=== PATIENT | male | born 1960 | race Caucasian/White ===

== ENCOUNTER 2017-07-20 17:41 | Inpatient (IN) | payer OTHER, MEDICAID ==
[2017-07-20 17:56] LABS: ADD MAN DIFF? NO
[2017-07-20 18:00] LABS: WHITE BLOOD COUNT 11.6 10^3/ul (4.8-10.8)
[2017-07-20 18:00] LABS: BASOPHILS % 0.3 % (0.0-2.0); EOSINOPHILS # 0.2 10^3/ul (0.0-0.5); EOSINOPHILS % 1.5 % (0.0-7.0); HEMATOCRIT 47.8 % (42.0-52.0); HEMOGLOBIN 16.5 g/dl (14.0-18.0); LYMPHOCYTES # 1.5 10^3/ul (0.8-2.9); LYMPHOCYTES % 12.7 % (15.0-51.0); MEAN CORPUSCULAR HEMOGLOBIN 31.8 pg (29.0-33.0); MEAN CORPUSCULAR HGB CONC 34.5 g/dl (32.0-37.0); MEAN CORPUSCULAR VOLUME 92.1 fl (82.0-101.0); MEAN PLATELET VOLUME 10.1 fl (7.4-10.4); MONOCYTE # 0.6 10^3/ul (0.3-0.9); MONOCYTES % 4.7 % (0.0-11.0); NEUTROPHIL # 9.3 10^3/ul (1.6-7.5); NEUTROPHILS % 80.4 % (39.0-77.0); PLATELET COUNT 219 10^3/UL (140-415); RED BLOOD COUNT 5.19 10^6/ul (4.70-6.10); RED CELL DISTRIBUTION WIDTH 12.5 % (11.5-14.5)
[2017-07-20 18:15] LABS: INR 0.98; PROTIME 13.1 Sec (11.9-14.9)
[2017-07-20 18:22] LABS: ALANINE AMINOTRANSFERASE 41 IU/L (13-69); ALBUMIN 4.6 g/dl (3.3-4.9); ALBUMIN/GLOBULIN RATIO 1.43; ALKALINE PHOSPHATASE 66 IU/L (42-121); ANION GAP 19 (8-16); ASPARTATE AMINO TRANSFERASE 24 IU/L (15-46); BILIRUBIN,INDIRECT 0.6 mg/dl (0-1.1); BILIRUBIN,TOTAL 0.6 mg/dl (0.2-1.3); BLOOD UREA NITROGEN 16 mg/dl (7-20); CALCIUM 9.4 mg/dl (8.4-10.2); CARBON DIOXIDE 26 mmol/L (21-31); CHLORIDE 102 mmol/L (97-110); CREATININE 0.95 mg/dl (0.61-1.24); GLUCOSE 171 mg/dl (70-220); POTASSIUM 4.5 mmol/L (3.5-5.1); SODIUM 142 mmol/L (135-144); TOTAL PROTEIN 7.8 g/dl (6.1-8.1)
[2017-07-20 18:33] LABS: B-TYPE NATRIURETIC PEPTIDE 889 PG/ML (0-125)
[2017-07-20] MEDS: SOD CHLORIDE 0.9% 100 ML (20:35)
[2017-07-20] MEDS: IOHEXOL 100 ML (20:36)
[2017-07-21] MEDS: SOD CHLORIDE 0.9% 1,000 ML IV (00:01)
[2017-07-21] MEDS: VANCOMYCIN 1 GM (PMX) 250 ML IVPB (00:02)
[2017-07-21] MEDS: KETOROLAC 15 MG INJ IV (00:02)
[2017-07-21] MEDS: CEFEPIME 1GM/50 ML (PMX) 50 ML IVPB ×3 (00:02→20:38)
[2017-07-21 00:39] LABS: LACTIC ACID 1.3 mmol/L (0.5-2.0)
[2017-07-21 00:40] LABS: CREATINE KINASE 81 IU/L (23-200)
[2017-07-21 00:52] LABS: CK INDEX 2.4
[2017-07-21 00:54] LABS: CK-MB 1.92 ng/ml (0.0-2.4)
[2017-07-21 01:01] LABS: TROPONIN-I 0.477 ng/ml (0.00-0.12)
[2017-07-21] MEDS ORDERED: BISACODYL 10 MG SUPP PR (01:30)
[2017-07-21] MEDS ORDERED: ONDANSETRON 4 MG INJ IV ×2 (01:30)
[2017-07-21] MEDS ORDERED: LORAZEPAM 0.5 MG TAB PO (01:30)
[2017-07-21] MEDS ORDERED: DOCUSATE SODIUM 100 MG CAP PO (01:30)
[2017-07-21] MEDS ORDERED: NACL 0.9% 3 ML SYG IV (01:30)
[2017-07-21] MEDS ORDERED: ACETAMINOPHEN 325 MG TAB PO (01:30)
[2017-07-21] MEDS ORDERED: MAGNESIUM HYDROXIDE 30ML CUP PO (01:30)
[2017-07-21] MEDS ORDERED: HYDROCODONE/APAP (5/325) TAB PO (01:30)
[2017-07-21] MEDS: ASPIRIN 81 MG TAB PO (01:44)
[2017-07-21] MEDS: NITROGLYCERIN (SL) 0.4 MG TAB SL ×3 (04:36→04:55)
[2017-07-21] MEDS: morphine 2 MG INJ IV (04:41)
[2017-07-21 05:29] LABS: AADO2 Arterial 467.1 mmHg (7.0-24.0); Arterial Base Excess 0.1 mmol/L (-3.0-3); Arterial Blood Gas Oxygen Sat 99.1 mmHG (95.0-98.0); Arterial COHb 0.9 % (0.0-3.0); Arterial Fraction of Oxyhgb 97.8 % (93.0-99.0); Arterial HCO3 26.3 mmol/L (22.0-26.0); Arterial MetHb 0.4 % (0.0-1.5); Arterial Total Hemglobin 17.2 g/dl (12.0-18.0); MODE NON-REBREATHING MASK; Site LB
[2017-07-21] MEDS: ENOXAPARIN 60 MG/0.6 ML SYG SC ×2 (08:02→20:41)
[2017-07-21] MEDS: ASPIRIN (EC) 81 MG TAB PO ×2 (08:33→08:36)
[2017-07-21] MEDS: BENAZEPRIL 40 MG TAB PO (08:33)
[2017-07-21] MEDS: ISOSORBIDE MONONITRATE(SR)60 MG TAB PO (08:33)
[2017-07-21] MEDS: FAMOTIDINE 20 MG TAB PO ×2 (08:33→20:39)
[2017-07-21] MEDS: PRASUGREL HYDROCHLORIDE 10 MG TABLET PO (08:33)
[2017-07-21 08:34] LABS: ADD MAN DIFF? NO
[2017-07-21 08:46] LABS: BASOPHILS % 0.3 % (0.0-2.0); EOSINOPHILS % 0.1 % (0.0-7.0); HEMATOCRIT 45.7 % (42.0-52.0); HEMOGLOBIN 15.7 g/dl (14.0-18.0); LYMPHOCYTES # 0.9 10^3/ul (0.8-2.9); LYMPHOCYTES % 12.2 % (15.0-51.0); MEAN CORPUSCULAR HEMOGLOBIN 31.7 pg (29.0-33.0); MEAN CORPUSCULAR HGB CONC 34.4 g/dl (32.0-37.0); MEAN CORPUSCULAR VOLUME 92.3 fl (82.0-101.0); MONOCYTE # 0.4 10^3/ul (0.3-0.9); MONOCYTES % 5.3 % (0.0-11.0); NEUTROPHIL # 5.9 10^3/ul (1.6-7.5); NEUTROPHILS % 81.3 % (39.0-77.0); PLATELET COUNT 169 10^3/UL (140-415); RED BLOOD COUNT 4.95 10^6/ul (4.70-6.10); RED CELL DISTRIBUTION WIDTH 12.7 % (11.5-14.5)
[2017-07-21 08:46] LABS: WHITE BLOOD COUNT 7.2 10^3/ul (4.8-10.8)
[2017-07-21 08:55] LABS: CREATINE KINASE 79 IU/L (23-200)
[2017-07-21 08:57] LABS: ALANINE AMINOTRANSFERASE 48 IU/L (13-69); ALBUMIN 3.8 g/dl (3.3-4.9); ALBUMIN/GLOBULIN RATIO 1.31; ALKALINE PHOSPHATASE 62 IU/L (42-121); ANION GAP 14 (8-16); ASPARTATE AMINO TRANSFERASE 36 IU/L (15-46); BILIRUBIN,INDIRECT 0.7 mg/dl (0-1.1); BILIRUBIN,TOTAL 0.7 mg/dl (0.2-1.3); BLOOD UREA NITROGEN 14 mg/dl (7-20); CALCIUM 8.6 mg/dl (8.4-10.2); CARBON DIOXIDE 28 mmol/L (21-31); CHLORIDE 102 mmol/L (97-110); CHOL/HDL RATIO 5.1 RATIO; CHOLESTEROL 174 mg/dl (100-200); CREATININE 0.92 mg/dl (0.61-1.24); GLUCOSE 211 mg/dl (70-220); HDL CHOLESTEROL 34 mg/dl (30-78); LDL CHOLESTEROL,CALCULATED 117 mg/dl; MAGNESIUM 1.4 mg/dl (1.7-2.5); SODIUM 140 mmol/L (135-144); TOTAL PROTEIN 6.7 g/dl (6.1-8.1); TRIGLYCERIDES 115 mg/dl (0-149)
[2017-07-21 08:58] LABS: LACTIC ACID 1.2 mmol/L (0.5-2.0)
[2017-07-21 08:59] LABS: PHOSPHORUS 3.7 mg/dl (2.5-4.9)
[2017-07-21] MEDS ORDERED: ENOXAPARIN 40 MG/0.4 ML SYG SC (09:00)
[2017-07-21] MEDS ORDERED: ENOXAPARIN 60 MG/0.6 ML SYG SC (09:00)
[2017-07-21 09:05] LABS: CK INDEX 2.3
[2017-07-21 09:08] LABS: CK-MB 1.82 ng/ml (0.0-2.4); TROPONIN-I 0.568 ng/ml (0.00-0.12)
[2017-07-21 12:58] LABS: TROPONIN-I 0.605 ng/ml (0.00-0.12)
[2017-07-21] MEDS: MAGNESIUM SULFATE 2 GM/50 ML 50 ML IVPB (14:26)
[2017-07-21] MEDS ORDERED: DEXTROSE 50% 50 ML SYRINGE IV ×2 (15:00)
[2017-07-21] MEDS ORDERED: ALBUTEROL/IPRATROPIUM (NEB) 3 ML AMP HHN (15:00)
[2017-07-21] MEDS ORDERED: GLUCOSE GEL 15 GRAM TUBE BUCCAL (15:00)
[2017-07-21] MEDS ORDERED: GLUCOSE GEL 15 GRAM TUBE PO ×2 (15:00)
[2017-07-21] MEDS ORDERED: GLUCAGON 1 MG INJ IM (15:00)
[2017-07-21 15:10] LABS: HEMOGLOBIN A1C 7.9 % (0-5.9)
[2017-07-21] MEDS: ALBUTEROL/IPRATROPIUM (NEB) 3 ML AMP HHN (16:29)
[2017-07-21] MEDS: NICOTINE (21 MG/24 HR) PATCH TRANSDERM (17:19)
[2017-07-21] MEDS: INSULIN ASPART [NOVOLOG] 3 ML PEN SC ×2 (17:21→20:42)
[2017-07-21 18:37] LABS: CREATINE KINASE 89 IU/L (23-200)
[2017-07-21 18:50] LABS: CK INDEX 0.8
[2017-07-21 18:56] LABS: CK-MB 0.67 ng/ml (0.0-2.4); TROPONIN-I 0.514 ng/ml (0.00-0.12)
[2017-07-21] MEDS: ATORVASTATIN 40 MG TAB PO (20:38)
[2017-07-21] MEDS ORDERED: ATORVASTATIN 10 MG TAB PO (21:00)
[2017-07-22] MEDS: ALBUTEROL/IPRATROPIUM (NEB) 3 ML AMP HHN ×3 (01:04→16:50)
[2017-07-22 07:48] LABS: ADD MAN DIFF? NO
[2017-07-22 07:51] LABS: BASOPHILS % 0.3 % (0.0-2.0); EOSINOPHILS # 0.1 10^3/ul (0.0-0.5); EOSINOPHILS % 0.7 % (0.0-7.0); HEMATOCRIT 45.3 % (42.0-52.0); HEMOGLOBIN 15.3 g/dl (14.0-18.0); LYMPHOCYTES # 1.3 10^3/ul (0.8-2.9); MEAN CORPUSCULAR HEMOGLOBIN 31.1 pg (29.0-33.0); MEAN CORPUSCULAR HGB CONC 33.8 g/dl (32.0-37.0); MEAN CORPUSCULAR VOLUME 92.1 fl (82.0-101.0); MEAN PLATELET VOLUME 9.8 fl (7.4-10.4); MONOCYTE # 0.5 10^3/ul (0.3-0.9); MONOCYTES % 7.7 % (0.0-11.0); NEUTROPHIL # 4.9 10^3/ul (1.6-7.5); NEUTROPHILS % 71.9 % (39.0-77.0); PLATELET COUNT 146 10^3/UL (140-415); RED BLOOD COUNT 4.92 10^6/ul (4.70-6.10); RED CELL DISTRIBUTION WIDTH 12.9 % (11.5-14.5)
[2017-07-22 07:51] LABS: WHITE BLOOD COUNT 6.8 10^3/ul (4.8-10.8)
[2017-07-22] MEDS: INSULIN ASPART [NOVOLOG] 3 ML PEN SC ×4 (07:56→21:00)
[2017-07-22] MEDS: ACETAMINOPHEN 325 MG TAB PO ×2 (07:57→21:14)
[2017-07-22 08:14] LABS: PHOSPHORUS 3.2 mg/dl (2.5-4.9)
[2017-07-22 08:14] LABS: MAGNESIUM 1.9 mg/dl (1.7-2.5)
[2017-07-22 08:17] LABS: ANION GAP 16 (8-16); BLOOD UREA NITROGEN 12 mg/dl (7-20); CALCIUM 8.5 mg/dl (8.4-10.2); CARBON DIOXIDE 29 mmol/L (21-31); CHLORIDE 100 mmol/L (97-110); CREATININE 0.98 mg/dl (0.61-1.24); GLUCOSE 177 mg/dl (70-220); SODIUM 141 mmol/L (135-144)
[2017-07-22] MEDS: BENAZEPRIL 40 MG TAB PO (09:00)
[2017-07-22] MEDS: ISOSORBIDE MONONITRATE(SR)60 MG TAB PO (09:00)
[2017-07-22] MEDS: CEFEPIME 1GM/50 ML (PMX) 50 ML IVPB (09:28)
[2017-07-22] MEDS: NICOTINE (21 MG/24 HR) PATCH TRANSDERM (10:09)
[2017-07-22] MEDS: PRASUGREL HYDROCHLORIDE 10 MG TABLET PO (11:04)
[2017-07-22] MEDS: ASPIRIN (EC) 81 MG TAB PO (11:04)
[2017-07-22] MEDS: FAMOTIDINE 20 MG TAB PO ×2 (11:04→21:17)
[2017-07-22] MEDS: ENOXAPARIN 60 MG/0.6 ML SYG SC (11:06)
[2017-07-22 11:22] LABS: CREATINE KINASE 111 IU/L (23-200)
[2017-07-22 11:36] LABS: CK INDEX 0.4; CK-MB 0.41 ng/ml (0.0-2.4); TROPONIN-I 0.225 ng/ml (0.00-0.12)
[2017-07-22] MEDS: REGADENOSON 0.4 MG/5 ML SYG (14:00)
[2017-07-22] MEDS: MAGNESIUM SULFATE 2 GM/50 ML 50 ML IVPB (14:48)
[2017-07-22] MEDS: AMIODARONE 200 MG TAB PO ×2 (15:30→21:15)
[2017-07-22] MEDS: AMOXICILLIN/CLAV 875 MG TAB PO (21:14)
[2017-07-22] MEDS: ATORVASTATIN 40 MG TAB PO (21:15)
[2017-07-22] MEDS: APIXABAN 5 MG TABLET PO (21:16)
[2017-07-23] MEDS: ALBUTEROL/IPRATROPIUM (NEB) 3 ML AMP HHN ×3 (00:33→15:15)
[2017-07-23] MEDS: INSULIN ASPART [NOVOLOG] 3 ML PEN SC ×3 (08:13→17:29)
[2017-07-23] MEDS: AMOXICILLIN/CLAV 875 MG TAB PO (08:42)
[2017-07-23] MEDS: APIXABAN 5 MG TABLET PO (08:43)
[2017-07-23] MEDS: AMIODARONE 200 MG TAB PO ×2 (08:43→13:18)
[2017-07-23] MEDS: BENAZEPRIL 20 MG TAB PO (08:44)
[2017-07-23 08:45] LABS: ADD MAN DIFF? NO
[2017-07-23] MEDS: FAMOTIDINE 20 MG TAB PO (08:45)
[2017-07-23] MEDS: ISOSORBIDE MONONITRATE(SR)60 MG TAB PO (08:45)
[2017-07-23 08:49] LABS: BASOPHILS % 0.3 % (0.0-2.0); EOSINOPHILS # 0.1 10^3/ul (0.0-0.5); EOSINOPHILS % 1.9 % (0.0-7.0); HEMATOCRIT 45.5 % (42.0-52.0); HEMOGLOBIN 15.7 g/dl (14.0-18.0); LYMPHOCYTES # 1.3 10^3/ul (0.8-2.9); MEAN CORPUSCULAR HEMOGLOBIN 31.5 pg (29.0-33.0); MEAN CORPUSCULAR HGB CONC 34.5 g/dl (32.0-37.0); MEAN CORPUSCULAR VOLUME 91.2 fl (82.0-101.0); MEAN PLATELET VOLUME 10.2 fl (7.4-10.4); MONOCYTE # 0.6 10^3/ul (0.3-0.9); MONOCYTES % 8.7 % (0.0-11.0); NEUTROPHIL # 5.1 10^3/ul (1.6-7.5); NEUTROPHILS % 70.7 % (39.0-77.0); PLATELET COUNT 149 10^3/UL (140-415); RED BLOOD COUNT 4.99 10^6/ul (4.70-6.10); RED CELL DISTRIBUTION WIDTH 12.8 % (11.5-14.5)
[2017-07-23 08:49] LABS: WHITE BLOOD COUNT 7.2 10^3/ul (4.8-10.8)
[2017-07-23] MEDS: NICOTINE (21 MG/24 HR) PATCH TRANSDERM (08:49)
[2017-07-23] MEDS: PRASUGREL HYDROCHLORIDE 10 MG TABLET PO (08:56)
[2017-07-23] MEDS ORDERED: BENAZEPRIL 40 MG TAB PO (09:00)
[2017-07-23 09:16] LABS: ANION GAP 15 (8-16); BLOOD UREA NITROGEN 13 mg/dl (7-20); CALCIUM 8.9 mg/dl (8.4-10.2); CARBON DIOXIDE 27 mmol/L (21-31); CHLORIDE 101 mmol/L (97-110); CREATININE 0.88 mg/dl (0.61-1.24); GLUCOSE 177 mg/dl (70-220); SODIUM 139 mmol/L (135-144)
[2017-07-23 09:24] LABS: MAGNESIUM 1.8 mg/dl (1.7-2.5)
[2017-07-23 09:24] LABS: PHOSPHORUS 3.3 mg/dl (2.5-4.9)
[2017-07-23] MEDS: MAGNESIUM SULFATE 2 GM/50 ML 50 ML IVPB (11:07)
== END 2017-07-23 19:58 | disposition home or self-care (01) | DRG 872 ==
LOC: E/R 17:41 → MS4 07-21 01:13
PROC: C22G1ZZ Tomographic (Tomo) Nuclear Medicine Imaging of Myocardium using Technetium 99m (Tc-99m) (ICD-10-PCS; principal; 2017-07-22)
PROC: 4A02XM4 Measurement of Cardiac Total Activity, External Approach (ICD-10-PCS; 2017-07-22)
PROC: 3E033HZ Introduction of Radioactive Substance into Peripheral Vein, Percutaneous Approach (ICD-10-PCS; 2017-07-22)
DX: A41.9 Sepsis, unspecified organism (principal); Z68.41 Body mass index [BMI] 40.0-44.9, adult; E66.9 Obesity, unspecified; E78.5 Hyperlipidemia, unspecified; I25.10 Atherosclerotic heart disease of native coronary artery without angina pectoris; Z95.1 Presence of aortocoronary bypass graft; Z95.810 Presence of automatic (implantable) cardiac defibrillator; I16.0 Hypertensive urgency; F17.200 Nicotine dependence, unspecified, uncomplicated; I25.5 Ischemic cardiomyopathy; I48.0 Paroxysmal atrial fibrillation; J20.9 Acute bronchitis, unspecified; E11.9 Type 2 diabetes mellitus without complications; I11.9 Hypertensive heart disease without heart failure; I25.2 Old myocardial infarction; R79.89 Other specified abnormal findings of blood chemistry
CPT/HCPCS: 36415; 36600; 71045; 71275; 78452; 80048; 80053; 80061; 82550; 82553; 82803; 82962; 83036; 83605; 83735; 83880; 84100; 84484; 85025; 85610; 87040; 87400; 93005; 93017; 93306; 93970; 94640; 94664; 96374; 96375; 99291-25

== ENCOUNTER 2017-12-11 04:04 | Inpatient (IN) | payer OTHER ==
[2017-12-11] MEDS: METHYLPREDNISOLONE 125 MG INJ IV ×3 (04:16→21:22)
[2017-12-11 04:26] LABS: WHITE BLOOD COUNT 16.5 10^3/ul (4.8-10.8)
[2017-12-11 04:26] LABS: ABNORMAL IP MESSAGE 1; HEMOGLOBIN 16.4 g/dl (14.0-18.0); MEAN CORPUSCULAR HEMOGLOBIN 30.5 pg (29.0-33.0); MEAN CORPUSCULAR HGB CONC 30.9 g/dl (32.0-37.0); MEAN CORPUSCULAR VOLUME 98.5 fl (82.0-101.0); MEAN PLATELET VOLUME 10.4 fl (7.4-10.4); PLATELET COUNT 272 10^3/UL (140-415); POSITIVE DIFF @See below; RED BLOOD COUNT 5.38 10^6/ul (4.70-6.10); RED CELL DISTRIBUTION WIDTH 13.4 % (11.5-14.5)
[2017-12-11 04:27] LABS: ADD MAN DIFF? YES
[2017-12-11] MEDS: IPRATROPIUM (NEB) 0.5 MG/2.5 ML AMP INH ×2 (04:37→04:51)
[2017-12-11] MEDS: ALBUTEROL 0.5% (NEB) 2.5 MG/0.5 ML AMP INH (04:40)
[2017-12-11 04:46] LABS: INR 0.99; PROTIME 13.2 Sec (11.9-14.9)
[2017-12-11 04:47] LABS: PARTIAL THROMBOPLASTIN TIME 29.7 Sec (25.0-35.0)
[2017-12-11 05:00] LABS: ALANINE AMINOTRANSFERASE 53 IU/L (13-69); ALBUMIN 4.5 g/dl (3.3-4.9); ALBUMIN/GLOBULIN RATIO 1.45; ALKALINE PHOSPHATASE 70 IU/L (42-121); ANION GAP 19 (8-16); ASPARTATE AMINO TRANSFERASE 52 IU/L (15-46); BILIRUBIN,INDIRECT 0.4 mg/dl (0-1.1); BILIRUBIN,TOTAL 0.4 mg/dl (0.2-1.3); BLOOD UREA NITROGEN 17 mg/dl (7-20); CALCIUM 9.4 mg/dl (8.4-10.2); CARBON DIOXIDE 26 mmol/L (21-31); CHLORIDE 106 mmol/L (97-110); GLUCOSE 259 mg/dl (70-220); POTASSIUM 4.6 mmol/L (3.5-5.1); SODIUM 146 mmol/L (135-144); TOTAL PROTEIN 7.6 g/dl (6.1-8.1)
[2017-12-11 05:03] LABS: LACTIC ACID 6.1 mmol/L (0.5-2.0)
[2017-12-11 05:11] LABS: B-TYPE NATRIURETIC PEPTIDE 924 PG/ML (0-125); TROPONIN-I < 0.012 ng/ml (0.000-0.120)
[2017-12-11 05:26] LABS: ANISOCYTOSIS 1+ (0-0); BAND NEUTROPHILS #M 0.1 10^3/ul (0.0-0.6); BAND NEUTROPHILS % (M) 1 % (0-4); BASOPHIL #M 0.1 10^3/ul (0.0-0.0); BASOPHILS % (M) 1 % (0-2); EOSINOPHILS % (M) 3 % (0-7); LYMPHOCYTES #M 7.4 10^3/ul (0.8-2.9); LYMPHOCYTES % (M) 45 % (15-51); MICROCYTOSIS 1+ (0-0); MONOCYTE #M 1.4 10^3/ul (0.3-0.9); MONOCYTES % (M) 9 % (0-11); MYELOCYTES #M 0.1 10^3/ul (0.0-0.0); MYELOCYTES % (M) 1 % (0-0); PLATELET ESTIMATE NORMAL; POIKILOCYTOSIS 3+ (0-0); POLYCHROMASIA 1+ (0-0); REACTIVE LYMPHOCYTES #M 0.1 10^3/ul (0.0-0.0); REACTIVE LYMPHOCYTES% (M) 1 % (0-0); SEG NEUT #M 6.5 10^3/ul (1.6-7.5); SEGMENTED NEUTROPHILS (M) % 39 % (39-77); SMUDGE%M 8 % (0-0)
[2017-12-11] MEDS: LEVOFLOXACIN 750MG/D5W (PMX) 150 ML IVPB (06:10)
[2017-12-11 06:12] LABS: AADO2 Arterial 280.6 mmHg (7.0-24.0); Allen Test ACCEPTAB; Arterial COHb 2.8 % (0.0-3.0); Arterial HCO3 24.4 mmol/L (22.0-26.0); Arterial MetHb 0.3 % (0.0-1.5); Arterial Total Hemglobin 15.6 g/dl (12.0-18.0); Arterial pCO2 52.2 mmhg (35-45); Blood Gas IEPAP 18/5; Blood Gas PS 13; MODE MASK - BIPAP; Site Right Radial
[2017-12-11 06:30] LABS: LACTIC ACID 1.8 mmol/L (0.5-2.0)
[2017-12-11] MEDS ORDERED: hydrALAzine 20 MG INJ IV (06:30)
[2017-12-11] MEDS ORDERED: VANCOMYCIN IV PER PHARMACY XX (06:30)
[2017-12-11] MEDS: BENAZEPRIL 20 MG TAB PO (06:33)
[2017-12-11] MEDS ORDERED: INSULIN ASPART [NOVOLOG] 3 ML PEN SC ×3 (07:00→09:00)
[2017-12-11] MEDS: ACCU-CHEK XX ×4 (07:00→21:22)
[2017-12-11] MEDS: PANTOPRAZOLE (EC) 40 MG TAB PO (07:40)
[2017-12-11] MEDS: VANCOMYCIN 1 GM (PMX) 250 ML IVPB (07:41)
[2017-12-11] MEDS: SOD CHLORIDE 0.9% 1,000 ML IV (08:12)
[2017-12-11] MEDS ORDERED: GLUCAGON 1 MG INJ IM (09:00)
[2017-12-11] MEDS ORDERED: GLUCOSE GEL 15 GRAM TUBE PO ×2 (09:00)
[2017-12-11] MEDS ORDERED: GLUCOSE GEL 15 GRAM TUBE BUCCAL (09:00)
[2017-12-11] MEDS ORDERED: DEXTROSE 50% 50 ML SYRINGE IV ×2 (09:00)
[2017-12-11 09:15] LABS: LACTIC ACID 2.3 mmol/L (0.5-2.0)
[2017-12-11] MEDS: AMIODARONE 200 MG TAB PO ×2 (09:22→21:18)
[2017-12-11] MEDS: PRASUGREL HYDROCHLORIDE 10 MG TABLET PO (09:22)
[2017-12-11] MEDS: APIXABAN 5 MG TABLET PO ×2 (09:23→21:19)
[2017-12-11] MEDS: LINAGLIPTIN 5 MG TABLET PO (09:23)
[2017-12-11] MEDS: ISOSORBIDE MONONITRATE(SR)60 MG TAB PO (09:23)
[2017-12-11] MEDS: ALBUTEROL/IPRATROPIUM (NEB) 3 ML AMP HHN ×4 (11:04→20:09)
[2017-12-11] MEDS: INSULIN ASPART [NOVOLOG] 3 ML PEN SC ×4 (11:55→21:21)
[2017-12-11] MEDS ORDERED: METHYLPREDNISOLONE 125 MG INJ IM (14:00)
[2017-12-11] MEDS ORDERED: BENAZEPRIL 20 MG TAB PO (18:00)
[2017-12-11] MEDS ORDERED: ATORVASTATIN 40 MG TAB PO (21:00)
[2017-12-11] MEDS: ATORVASTATIN 80 MG TAB PO (21:17)
[2017-12-12] MEDS: ALBUTEROL/IPRATROPIUM (NEB) 3 ML AMP HHN ×5 (01:00→17:28)
[2017-12-12] MEDS: ACCU-CHEK XX ×4 (02:00→17:30)
[2017-12-12 05:58] LABS: ADD MAN DIFF? NO
[2017-12-12 06:01] LABS: BASOPHILS % 0.1 % (0.0-2.0); HEMATOCRIT 42.8 % (42.0-52.0); HEMOGLOBIN 14.1 g/dl (14.0-18.0); LYMPHOCYTES # 1.3 10^3/ul (0.8-2.9); LYMPHOCYTES % 7.9 % (15.0-51.0); MEAN CORPUSCULAR HEMOGLOBIN 31.3 pg (29.0-33.0); MEAN CORPUSCULAR HGB CONC 32.9 g/dl (32.0-37.0); MEAN CORPUSCULAR VOLUME 95.1 fl (82.0-101.0); MEAN PLATELET VOLUME 10.7 fl (7.4-10.4); MONOCYTE # 0.3 10^3/ul (0.3-0.9); MONOCYTES % 1.7 % (0.0-11.0); NEUTROPHIL # 14.3 10^3/ul (1.6-7.5); NEUTROPHILS % 89.3 % (39.0-77.0); PLATELET COUNT 213 10^3/UL (140-415); RED CELL DISTRIBUTION WIDTH 13.2 % (11.5-14.5)
[2017-12-12] MEDS: METHYLPREDNISOLONE 125 MG INJ IV ×2 (06:08→14:10)
[2017-12-12] MEDS: PANTOPRAZOLE (EC) 40 MG TAB PO (06:08)
[2017-12-12 06:33] LABS: LACTIC ACID 1.8 mmol/L (0.5-2.0)
[2017-12-12 06:34] LABS: ANION GAP 14 (8-16); BLOOD UREA NITROGEN 20 mg/dl (7-20); CALCIUM 8.8 mg/dl (8.4-10.2); CARBON DIOXIDE 25 mmol/L (21-31); CHLORIDE 106 mmol/L (97-110); CREATININE 0.84 mg/dl (0.61-1.24); GLUCOSE 221 mg/dl (70-220); POTASSIUM 4.6 mmol/L (3.5-5.1); SODIUM 140 mmol/L (135-144)
[2017-12-12] MEDS: INSULIN ASPART [NOVOLOG] 3 ML PEN SC ×3 (08:10→18:00)
[2017-12-12] MEDS ORDERED: LEVOFLOXACIN 750MG/D5W (PMX) 150 ML IVPB (09:00)
[2017-12-12] MEDS: CEFTRIAXONE 1 GM/50 ML (PMX) 50 ML IVPB (09:45)
[2017-12-12] MEDS: PRASUGREL HYDROCHLORIDE 10 MG TABLET PO (09:45)
[2017-12-12] MEDS: BENAZEPRIL 20 MG TAB PO (09:45)
[2017-12-12] MEDS: ISOSORBIDE MONONITRATE(SR)60 MG TAB PO (09:45)
[2017-12-12] MEDS: LINAGLIPTIN 5 MG TABLET PO (09:46)
[2017-12-12] MEDS: APIXABAN 5 MG TABLET PO (09:47)
[2017-12-12] MEDS: DOXYCYCLINE 100 MG in SOD CHLORIDE 0.9% 250 ML IVPB (09:51)
[2017-12-12] MEDS: AMIODARONE 200 MG TAB PO (09:52)
== END 2017-12-12 18:00 | disposition home or self-care (01) | DRG 190 ==
LOC: E/R 04:04 → 6WM 05:49
PROVIDERS: Internal Medicine
DX: J44.1 Chronic obstructive pulmonary disease with (acute) exacerbation (principal); J96.00 Acute respiratory failure, unspecified whether with hypoxia or hypercapnia; E87.2 Acidosis; Z95.0 Presence of cardiac pacemaker; Z95.1 Presence of aortocoronary bypass graft; I10 Essential (primary) hypertension; Z72.0 Tobacco use; E11.9 Type 2 diabetes mellitus without complications; I25.5 Ischemic cardiomyopathy
CPT/HCPCS: 36415; 36600; 71045; 80048; 80053; 82803; 82962; 83605; 83880; 84484; 85025; 85610; 85730; 93005; 94640; 94644; 94660; 96374; 99291-25

== ENCOUNTER 2018-10-24 00:40 | Inpatient (IN) | payer OTHER ==
[2018-10-24 00:54] LABS: ADD MAN DIFF? NO
[2018-10-24 00:56] LABS: WHITE BLOOD COUNT 9.9 10^3/ul (4.8-10.8)
[2018-10-24 00:56] LABS: BASOPHIL # 0.1 10^3/ul (0.0-0.1); BASOPHILS % 0.7 % (0.0-2.0); EOSINOPHILS # 0.3 10^3/ul (0.0-0.5); EOSINOPHILS % 3.2 % (0.0-7.0); HEMATOCRIT 49.3 % (42.0-52.0); HEMOGLOBIN 15.6 g/dl (14.0-18.0); LYMPHOCYTES # 3.6 10^3/ul (0.8-2.9); LYMPHOCYTES % 36.6 % (15.0-51.0); MEAN CORPUSCULAR HEMOGLOBIN 30.6 pg (29.0-33.0); MEAN CORPUSCULAR HGB CONC 31.6 g/dl (32.0-37.0); MEAN CORPUSCULAR VOLUME 96.9 fl (82.0-101.0); MEAN PLATELET VOLUME 10.3 fl (7.4-10.4); MONOCYTE # 0.6 10^3/ul (0.3-0.9); MONOCYTES % 5.6 % (0.0-11.0); NEUTROPHIL # 5.2 10^3/ul (1.6-7.5); NEUTROPHILS % 53.1 % (39.0-77.0); PLATELET COUNT 271 10^3/UL (140-415); RED BLOOD COUNT 5.09 10^6/ul (4.70-6.10); RED CELL DISTRIBUTION WIDTH 13.4 % (11.5-14.5)
[2018-10-24 01:16] LABS: ALANINE AMINOTRANSFERASE 47 IU/L (13-69); ALBUMIN 4.4 g/dl (3.3-4.9); ALBUMIN/GLOBULIN RATIO 1.46; ALKALINE PHOSPHATASE 59 IU/L (42-121); ANION GAP 8 (5-13); ASPARTATE AMINO TRANSFERASE 48 IU/L (15-46); BILIRUBIN,INDIRECT 0.5 mg/dl (0-1.1); BILIRUBIN,TOTAL 0.5 mg/dl (0.2-1.3); BLOOD UREA NITROGEN 17 mg/dl (7-20); CALCIUM 9.5 mg/dl (8.4-10.2); CARBON DIOXIDE 29 mmol/L (21-31); CHLORIDE 105 mmol/L (97-110); CREATININE 1.15 mg/dl (0.61-1.24); Estimated GFR > 60 mL/min (>60); GLUCOSE 171 mg/dl (70-220); SODIUM 142 mmol/L (135-144); TOTAL PROTEIN 7.4 g/dl (6.1-8.1)
[2018-10-24 01:22] LABS: INR 0.93; PROTIME 12.6 Sec (11.9-14.9)
[2018-10-24 01:23] LABS: AADO2 Arterial 213.5 mmHg (7.0-24.0); Allen Test ACCEPTAB; Arterial Base Excess -1.7 mmol/L (-3.0-3); Arterial Blood Gas Oxygen Sat 95.8 mmHG (95.0-98.0); Arterial COHb 2.3 % (0.0-3.0); Arterial Fraction of Oxyhgb 93.4 % (93.0-99.0); Arterial HCO3 24.9 mmol/L (22.0-26.0); Arterial MetHb 0.2 % (0.0-1.5); Blood Gas IEPAP 15/5; MODE MASK - BIPAP; PARTIAL THROMBOPLASTIN TIME 31.9 Sec (23.0-35.0); Site Right Radial
[2018-10-24 01:28] LABS: TROPONIN-I < 0.012 ng/ml (0.000-0.120)
[2018-10-24] MEDS ORDERED: ONDANSETRON 4 MG INJ IV ×2 (02:00→02:30)
[2018-10-24] MEDS ORDERED: ACETAMINOPHEN 325 MG TAB PO ×2 (02:00→02:30)
[2018-10-24] MEDS ORDERED: DOCUSATE SODIUM 100 MG CAP PO (02:30)
[2018-10-24] MEDS ORDERED: FAMOTIDINE 20 MG TAB PO (02:30)
[2018-10-24] MEDS ORDERED: NACL 0.9% 3 ML SYG IV (02:30)
[2018-10-24] MEDS: FAMOTIDINE 20 MG TAB PO ×2 (02:39→09:55)
[2018-10-24 03:07] LABS: B-TYPE NATRIURETIC PEPTIDE 1190 PG/ML (0-125)
[2018-10-24] MEDS: ALBUTEROL/IPRATROPIUM (NEB) 3 ML AMP HHN ×3 (04:48→12:20)
[2018-10-24 06:01] LABS: LACTIC ACID 1.7 mmol/L (0.5-2.0)
[2018-10-24] MEDS: ACCU-CHEK XX ×2 (06:10→11:56)
[2018-10-24 06:16] LABS: CREATINE KINASE 37 IU/L (23-200)
[2018-10-24 06:29] LABS: CK INDEX 1.3; CK-MB 0.47 ng/ml (0.0-2.4); TROPONIN-I 0.016 ng/ml (0.000-0.120)
[2018-10-24] MEDS: metFORMIN 500 MG TAB PO (08:14)
[2018-10-24] MEDS: FLUTICASONE/VILANTEROL 100-25 INH (09:54)
[2018-10-24] MEDS: FUROSEMIDE 40 MG INJ IV (09:54)
[2018-10-24] MEDS: METHYLPREDNISOLONE 40 MG INJ IV (09:54)
[2018-10-24] MEDS: BENAZEPRIL 20 MG TAB PO (09:55)
[2018-10-24] MEDS: AMIODARONE 200 MG TAB PO (09:55)
[2018-10-24] MEDS: LINAGLIPTIN 5 MG TABLET PO (09:55)
[2018-10-24] MEDS: APIXABAN 5 MG TABLET PO (09:55)
[2018-10-24] MEDS ORDERED: FUROSEMIDE 40 MG INJ IV (10:30)
[2018-10-24 12:24] LABS: CREATINE KINASE 42 IU/L (23-200)
[2018-10-24 12:36] LABS: CK INDEX 1.3; CK-MB 0.53 ng/ml (0.0-2.4); TROPONIN-I < 0.012 ng/ml (0.000-0.120)
[2018-10-24] MEDS ORDERED: ATORVASTATIN 40 MG TAB PO (21:00)
== END 2018-10-24 13:24 | disposition home or self-care (01) | DRG 291 ==
LOC: E/R 00:40 → TEL 01:52
DX: I11.0 Hypertensive heart disease with heart failure (principal); J81.0 Acute pulmonary edema; Z72.0 Tobacco use; I50.23 Acute on chronic systolic (congestive) heart failure; I25.5 Ischemic cardiomyopathy; Z95.1 Presence of aortocoronary bypass graft; J44.9 Chronic obstructive pulmonary disease, unspecified; E11.8 Type 2 diabetes mellitus with unspecified complications; I48.91 Unspecified atrial fibrillation; Z95.810 Presence of automatic (implantable) cardiac defibrillator
CPT/HCPCS: 36415; 36600; 71045; 80053; 82550; 82553; 82803; 82962; 83605; 83880; 84484; 85025; 85610; 85730; 93005; 94640; 94660; 94664; 99285-25